=== PATIENT | female | born 1940 | race Caucasian/White ===

== ENCOUNTER 2018-09-01 12:51 | Inpatient (IN) ==
[2018-09-01 13:28] LABS: BASO# 0.01 X1000 (0.0-0.2); BASO% 0.2 % (0.0-0.8); EOS# 0.06 X1000 (0.0-0.7); HEMOGLOBIN 10.3 g/dL (12.0-16.0); MCV 83.2 FL (81-99); MPV 12.5 FL (7.4-10.4)
[2018-09-01 13:32] LABS: HEMATOCRIT 33.1 % (37.0-47.0); IMM GRAN# 0.05 X1000 (0.0-0.04); IMM GRAN% 0.9 % (0.0-0.5); LYMPH# 0.95 X1000 (1.2-3.4); LYMPH% 16.6 % (20.5-51.1); MCH 25.9 PG (27-31); MCHC 31.1 g/dL (33-37); MONO# 0.49 X1000 (0.11-0.59); MONO% 8.6 % (1.7-9.3); NEUT# 4.16 X1000 (1.4-6.5); NEUT% 72.7 % (42.2-75.2); PLT 191 X1000 (130-400); RBC 3.98 XMIL (4.2-5.4); RDW 13.8 % (11.5-14.5); WBC 5.72 X1000 (4.8-10.8)
[2018-09-01 13:43] LABS: ALBUMIN 3.6 g/dL (3.5-5.0); CALCIUM 8.8 mg/dL (8.8-10.2); CREATININE 1.1 mg/dL (0.5-0.9); POTASSIUM 3.4 mmol/L (3.5-5.1); TOTAL BILIRUBIN 0.3 mg/dL (0.20-1.00); TOTAL PROTEIN 7.2 g/dL (6.3-8.3)
[2018-09-01 13:49] LABS: INFLUENZA A NEGATIVE (NEGATIVE); INFLUENZA B NEGATIVE (NEGATIVE)
--- NOTE | 2018-09-01 15:00 | PROVIDER DOCUMENTATION ---
HPI-General Adult - General Chief Complaint: Headache Stated Complaint: VOMITING Time Seen by Provider: 09/01/18 14:40 Source: patient Allergies/Adverse Reactions: Patient Allergies Allergy/AdvReac Type Severity Reaction Status Date / Time Penicillins Allergy Unknown Verified 09/01/18 13:52 tramadol AdvReac Unknown Verified 09/01/18 13:52 Home Medications: Home Medication List Medication Instructions Recorded Confirmed Last Taken Type Levothyroxine [Synthroid] 50 microgm PO DAILY 03/03/18 09/01/18 06/20/18 History Montelukast Sodium 10 mg PO HS 03/03/18 09/01/18 06/19/18 History Melatonin/Pyridoxine HCl (B6) 1 ea PO QHS PRN #7 tab 06/23/18 09/01/18 Unknown Rx [Melatonin 1 mg Tablet] Lisinopril 10 mg PO DAILY #30 tab 07/24/18 09/01/18 Unknown Rx Donepezil HCl 5 mg PO DAILY 09/01/18 09/01/18 Unknown History - History of Present Illness -Gen Adult Nature of Presenting Problems: Patient is a 78 yowf who complains of nausea since yesterday. Emesis x 1 today. States she had a headache yesterday and the day before but denies headache today. Denies fever or diarrhea. Also reports dysuria and suprapubic pain. She denies any other symptoms and is non-toxic in appearance. Location of Pain/Injury: reports: other (suprapubic area) Pain Radiation: reports: no radiation Onset/Duration: reports: this morning Timing: reports: still present Modifying Factors: improves with: nothing Similar Symptoms Previously?: No Recently seen or treated by another doctor?: No Review of Systems - Adult - REVIEW OF SYSTEMS - ADULT Constitutional: reports: chills. denies: fever Eyes: reports: no symptoms reported Ears, Nose, Mouth & Throat: reports: no symptoms reported Cardiovascular: denies: chest pain Respiratory: denies: dyspnea on exertion, shortness of breath Gastrointestinal: reports: nausea, vomiting, other (last BM was this am and pt states it was soft and formed). denies: constipation, diarrhea Genitourinary: reports: dysuria. denies: flank pain Musculoskeletal: reports: no symptoms reported Integumentary: reports: no symptoms reported Neurological: reports: headache/migraines (denies today) Psychiatric: reports: no symptoms reported Endocrine: reports: no symptoms reported Hematologic/Lymphatic: reports: no symptoms reported Allergic/Immunologic: reports: no symptoms reported All Other Systems: Reviewed and Negative Past History - Adult - PAST MEDICAL HISTORY-ADULT Review of Records: reports: Old Records Reviewed, Nursing Assessment Review, Medications Reviewed, Social history reviewed & non-contributory. Cardiovascular: reports: HTN Neurological: reports: TIA Additional History: hypothyroidism - PRIOR SURGERIES/PROCEDURES Surgical/Procedure History: reports: hysterectomy - IMMUNIZATION STATUS Childhood Immunizations: See Nurse Assessment Flu Vaccine: See Nurse Assessment - FAMILY HISTORY Family History: reviewed, not pertinent - SOCIAL HISTORY Smoking: non-smoker Physical Exam-General - PHYSICAL EXAM-ADULT Initial Vital Signs Reviewed: Yes - CONSTITUTIONAL General Appearance: appears well, alert, no apparent distress. negative: lethargic, slow to respond - EYES Eyes: pink conjunctivae - HEAD, EARS, NOSE, MOUTH & THROAT HENMT: normocephalic/atraumatic, moist mucous membranes - NECK Neck: full range of motion, supple, normal inspection - RESPIRATORY Respiratory: chest non-tender, lungs clear, normal breath sounds, no pleuratic chest pain, no respiratory distress, no accessory muscle use - CARDIOVASCULAR Cardiovascular: normal peripheral pulses, regular rate, rhythm, no gallop, no murmur - GASTROINTESTINAL (ABDOMEN) Abdominal Exam: normal bowel sounds, soft, no organomegaly, tenderness ( suprapubic tenderness to deep palpation present). negative: distended, guarding , rigid, rebound, hernia, mass - LYMPHATIC Lymphatic: no adenopathy - MUSCULOSKELETAL Back Exam: normal inspection, no CVA tenderness Extremity: normal range of motion, non-tender, normal gait, normal inspection - SKIN Integumentary: normal color, normal turgor, warm/dry. negative: cyanosis, diaphoresis, jaundice, mottled, pallor - NEUROLOGIC Neurologic: grossly normal, no motor/sensory deficits - PSYCHIATRIC Psych/Mental Status: normal mood/affect, normal thought content, normal thought process, oriented x 3 Progress - PLAN OF CARE/RESULTS Progress/Plan/Lab Results: Vital Signs - 8 hr 09/01/18 12:54 09/01/18 14:03 Temperature 98.2 F Pulse Rate 72 74 Respiratory Rate 18 20 Blood Pressure 164/93 163/88 O2 Sat by Pulse Oximetry 98 100 Laboratory Results - last 24 hr 09/01/18 09/01/18 09/01/18 13:10 13:19 13:19 WBC 5.72 RBC 3.98 L Hgb 10.3 L Hct 33.1 L MCV 83.2 MCH 25.9 L MCHC 31.1 L RDW Std Deviation 13.8 Plt Count 191 MPV 12.5 H Immature Gran % (Auto) 0.9 H Neut % (Auto) 72.7 Lymph % (Auto) 16.6 L [place] % (Auto) 8.6 Eos % (Auto) 1.0 Baso % (Auto) 0.2 Immature Gran # (Auto) 0.05 H Neut # (Auto) 4.16 Lymph # (Auto) 0.95 L [place] # (Auto) 0.49 Eos # (Auto) 0.06 Baso # (Auto) 0.01 Sodium 136 Potassium 3.4 L Chloride 104 Carbon Dioxide 22 L Anion Gap 11 BUN 9 Creatinine 1.1 H Estimated GFR/1.73 m2 48 BUN/Creatinine Ratio 8 Glucose 124 H Calculated Osmolality 272 Calcium 8.8 Total Bilirubin 0.30 AST 17 ALT 13 Alkaline Phosphatase 124 H Total Protein 7.2 Albumin 3.6 Globulin 4.0 Albumin/Globulin Ratio 1.0 Influenza A (Rapid) NEGATIVE Influenza B (Rapid) NEGATIVE Orders Category Date Time Status CT HEAD W/O CONTRAST [CT] Stat Exams 09/01/18 14:55 Ordered CBC WITH ELECTRONIC DIFF [HEME] Stat Lab 09/01/18 13:19 Completed COMPREHENSIVE METABOLIC PANEL [CHEM] Stat Lab 09/01/18 13:19 Completed Flu [INFLUENZA SCREEN PL] Stat Lab 09/01/18 13:10 Completed UA NIMS W/REFLEX CULT PL [URINALYSIS] Stat Lab 09/01/18 14:54 Ordered Discussed plan of care with pt who is in agreement. Anemia stable as compared to previous results. Discussed case with Dr. Garnica who will assess pt in the ED. Paged Dr. Bustamante regarding admission for medical management per Dr. Garnica. Dr. Garnica saw and evaluated pt- requests orders for scheduled Cipro and Flagyl. Also spoke with Dr. Bustamante who is in ED and will see pt. Result Diagrams: 09/01/18 13:19 09/01/18 13:19 - CT/MRI 1 CT Study: Head ([facility] [address], [address], [place] [address] Department of Imaging Patient: ESTEFANY ZAMARRIPA HADPrerna Date: MR#: [id number] : 1940DM [facility] [id number] Age/ Sex: 78/FRoom/Bed: Loc: P.ED Ordering Physician: Jose Elias Bridges Family Physician: Tanna Liu MD Reason for Procedure: headache, nausea Signed EXAM: CT HEAD W/O CONTRAST HISTORY: headache, nausea TECHNIQUE: Images were obtained from the skull base to vertex without IV contrast as per standard protocol. COMPARISON: 06/29/2018 FINDINGS: There are no extra-axial collections. There is no evidence for acute infarct or hemorrhage. There is no midline shift or mass effect. There is no hydrocephalus. There is diffuse cerebral atrophy. There is patchy hypodensity throughout the deep white matter which is nonspecific in appearance but likely related to microvascular disease . Paranasal sinuses and mastoid air cells are clear. IMPRESSION: No acute intracranial abnormality is appreciated. Atrophy and microvascular disease. This exam was performed using automated exposure control, adjustment of mA or kV according to patient size, and/or use of iterative reconstruction technique. Electronically signed by Corina Waite 3:38 PM) 2 CT Study: Abdomen, Pelvis ([facility] [address] [facility], [address], [place] [address] Department of Imaging Patient: ESTEFANY ZAMARRIPA HADPrerna Date: 09/01/18MR#: [id number] : 1940DM [facility] [id number] Age/Sex: 78/FRoom/Bed: Loc: P.ED Ordering Physician: Jose Elias Bridges Family Physician: Tanna Liu MD Reason for Procedure: lower abdominal pain, vomiting Signed EXAM: CT ABD/PELVIS W/IV CONT ONLY 09/01/2018 HISTORY: lower abdominal pain, vomiting TECHNIQUE: This exam was performed using automated exposure control, adjustment of mA or kV according to patient size, and/or use of iterative reconstruction technique. COMMENT: There is some dependent atelectasis in both lung bases. There is a calcified granuloma near the distal thoracic esophagus. There are granulomata in the liver. The spleen is not enlarged. The adrenal glands are not enlarged. The pancreas is normal in appearance. There are some calcified gallstones layering dependently in the gallbladder. There is no evidence of hydronephrosis or mass in the kidneys. The aorta is not distended. There is no evidence of bowel dilatation. There is a fat-containing umbilical hernia. Pelvis: There is dilatation of the distal appendix to over 12 mm without evidence of acute inflammation. The distal appendix was distended to over 8 mm at the time the previous examination of 02/02/2012. There has been hysterectomy. The urinary bladder is unremarkable and there is no evidence of free fluid. There are anchors in the pubic bones. There is degenerative disc disease in the lumbar spine particularly at the L4-5 level there is spinal stenosis. IMPRESSION: Dilatation of the appendix which may be chronic. Cholelithiasis. Electronically signed by Imer Trejo 09/01/2018 5:37 PM 09/01/18 1737 Interpreting Physician: Imer Trejo MD Dictated Date/Time: 1731 cc: Jose Elias Bridges; Tanna Liu MD) - CONSULTS/PCP/HOSPITALIST Notification #1 *Consult/PCP/Hospitalist*: Dr. Danika Christianson Discussed: 17:45 Reason/Comments: possible appendicitis Consult Disposition: Will see in ED #2 Consult: Dr. Bustamante Time Discussed: 18:18 Reason/Comments: medical management/admission Departure - Departure Date of Disposition Decision: 09/01/18 Time of Disposition Decision: 17:40 DIAGNOSIS: Abdominal pain Qualifiers: Abdominal location: lower abdomen, unspecified Qualified Code(s): R10.30 - Lower abdominal pain, unspecified Vomiting Qualifiers: Vomiting type: unspecified Vomiting Intractability: non-intractable Nausea presence: with nausea Qualified Code(s): R11.2 - Nausea with vomiting, unspecified Disposition: ADMITTED INPATIENT 09 Certified Medical Emergency: Emergent Condition: Stable Referrals and Follow-Ups: Tanna Liu MD [Primary Care Provider] - - Critical Care Note This patient required my direct & personal management of CC.: No Attestation - Physician/ JAYESH Attestation Patient care was provided by Advanced Practice Provider:: Yes Advanced Practice Provider:: Jose Elias Bridges Advanced Practice Provider documentation review:: The Mid-level provider documentation, treatment plan and medical decision making was reviewed by the physician who agrees with all treatment and medical decision making by the MLP. The physician spent face to face time with patient:: No Advanced Practice Provider documentation review:: Supervising physician onsite and consulted in the evaluation and care of this patient. The physician did not have a face to face encounter with the patient.
[2018-09-01 15:17] LABS: BILIRUBIN URINE NEGATIVE (NEGATIVE); BLOOD URINE NEGATIVE (NEGATIVE); CLARITY CLEAR (CLEAR); COLOR YELLOW; GLUCOSE URINE NEGATIVE (NEGATIVE); KETONE URINE NEGATIVE (NEGATIVE); LEUKOCYTES URINE NEGATIVE (NEGATIVE); NITRITE URINE NEGATIVE (NEGATIVE); PROTEIN URINE NEGATIVE (NEGATIVE); SP GRAVITY URINE 1.005; UROBILINOGEN URINE NORMAL
[2018-09-01 15:24] LABS: URINE BACTERIA 1+ /HFP; URINE CAST NONE SEEN /LPF; URINE CRYSTAL NONE SEEN /HPF; URINE EPITHELIAL CELLS <10 /HPF (<10); URINE SOURCE CLEAN CATCH; URINE YEAST NONE SEEN /HPF
--- NOTE | 2018-09-01 15:40 | Diag Imaging Result Doc PS360 ---
EXAM: CT HEAD W/O CONTRAST HISTORY: headache, nausea TECHNIQUE: Images were obtained from the skull base to vertex without IV contrast as per standard protocol. COMPARISON: 06/29/2018 FINDINGS: There are no extra-axial collections. There is no evidence for acute infarct or hemorrhage. There is no midline shift or mass effect. There is no hydrocephalus. There is diffuse cerebral atrophy. There is patchy hypodensity throughout the deep white matter which is nonspecific in appearance but likely related to microvascular disease . Paranasal sinuses and mastoid air cells are clear. IMPRESSION: No acute intracranial abnormality is appreciated. Atrophy and microvascular disease. This exam was performed using automated exposure control, adjustment of mA or kV according to patient size, and/or use of iterative reconstruction technique. Electronically signed by Corina Waite 09/01/2018 3:38 PM
[2018-09-01] MEDS ORDERED: ZOFRAN ODT PO ONE (15:42)
[2018-09-01] MEDS ORDERED: NS 500 ML IV ONE (16:16)
--- NOTE | 2018-09-01 17:39 | Diag Imaging Result Doc PS360 ---
EXAM: CT ABD/PELVIS W/IV CONT ONLY 09/01/2018 HISTORY: lower abdominal pain, vomiting TECHNIQUE: This exam was performed using automated exposure control, adjustment of mA or kV according to patient size, and/or use of iterative reconstruction technique. COMMENT: There is some dependent atelectasis in both lung bases. There is a calcified granuloma near the distal thoracic esophagus. There are granulomata in the liver. The spleen is not enlarged. The adrenal glands are not enlarged. The pancreas is normal in appearance. There are some calcified gallstones layering dependently in the gallbladder. There is no evidence of hydronephrosis or mass in the kidneys. The aorta is not distended. There is no evidence of bowel dilatation. There is a fat-containing umbilical hernia. Pelvis: There is dilatation of the distal appendix to over 12 mm without evidence of acute inflammation. The distal appendix was distended to over 8 mm at the time the previous examination of 02/02/2012. There has been hysterectomy. The urinary bladder is unremarkable and there is no evidence of free fluid. There are anchors in the pubic bones. There is degenerative disc disease in the lumbar spine particularly at the L4-5 level there is spinal stenosis. IMPRESSION: Dilatation of the appendix which may be chronic. Cholelithiasis. Electronically signed by Imer Trejo 09/01/2018 5:37 PM
[2018-09-01] MEDS: CIPRO 400 MG/D5W 400 MG/200 ML IVPB IV SCH (18:43)
[2018-09-01] MEDS: NS 1,000 ML IV SCH (20:31)
[2018-09-01] MEDS: FLAGYL 500 MG/NS 500 MG/100 ML IVPB IV SCH (20:31)
[2018-09-01] MEDS: ZOFRAN IV PRN (22:19)
--- NOTE | 2018-09-02 00:06 | GENERAL SURGERY CONSULTATION ---
DATE: 09/01/2018 HISTORY OF PRESENT ILLNESS: This is a 78-year-old female with history of dementia who presents with right side abdominal pain, it has been episodic over the last couple weeks. She says it radiates down her leg. She has had some nausea today which prompted her admission to the emergency department. She has had symptoms have always been worse after eating. She denies any fevers, bowel function been normal. She has had at least 3 colonoscopies she said had been okay. Dr. Liu is her primary physician. She also has had some weight loss MEDICAL HISTORY: Hypertension. No cardiac history otherwise. SURGICAL HISTORY: She has had a lower midline incision what appears to be a hysterectomy or C- section she is unsure. SOCIAL HISTORY: No tobacco, alcohol, or drugs. Her family is here with her. She lives with her daughter. FAMILY HISTORY: Reviewed, noncontributory. REVIEW OF SYSTEMS: Ten point negative. PHYSICAL EXAM: Temperature 98.1 degrees, pulse 87, blood pressure 153/79, O2 saturation 100% . She is 147 pounds, 5 foot.General: She is alert. HEENT: There is no scleral icterus or cervical mass. Cardiovascular: Normal rate, regular rhythm. Pulmonary: No increased work of breathing. Abdomen: Soft. There is no tenderness, no peritonitis. There is lower midline incision is well healed. Integument: Warm and dry. Psychiatric: Appropriate affect. Neurologic: No gross deficits. Musculoskeletal: She does have some muscle atrophy throughout. Lymphatic: No cervical, axillary, inguinal adenopathy. LABS: White count 5, hematocrit 33, platelets 191,000, creatinine is 1.1, bilirubin 0.30, AST, ALT are normal, alkaline phosphatase mildly elevated. Urinalysis is clear. Flu is negative. I reviewed the CT scan her abdomen that shows gallstones and a dilated appendix. ASSESSMENT AND PLAN: A 78-year-old female with right side abdominal pain. It is unclear if this is related to her gallstones which most likely it is or if it is related to chronic dilation appendix which could be a chronic appendicitis or mucocele type process. We discussed both of these findings, I think given her vague symptoms and a right-sided pain with nausea I have recommended admission for antibiotics and cholecystectomy with appendectomy tomorrow. We will plan on doing this laparoscopic. We discussed risks of bleeding, infection, damage surrounding structures, bile leak, anastomotic leak. She understands and consents. Will go the operating room tomorrow. cc: MD TANA Jenkins
[2018-09-02] MEDS: OFIRMEV 1000 MG/ISOTONIC SOLN 1,000 MG/100 ML BOTTLE IV PRN ×3 (00:14→21:59)
--- NOTE | 2018-09-02 01:52 | HISTORY AND PHYSICAL ---
CHIEF COMPLAINT: Vomiting, nausea, headache, diarrhea. HISTORY OF PRESENT ILLNESS: This is a 78-year-old female with a history of hypertension, hypothyroid, diastolic heart failure, chronic kidney disease. She presents to the emergency room complaining of 24 hours of nausea, vomiting, diarrhea. She did state she had a headache yesterday but the headache did subside through the night and has not returned. She denies any chest pain, palpitations, black or bloody vomitus or stools, any constipation. PAST MEDICAL HISTORY: Is hypertension, hypothyroid, gastroesophageal reflux disease, diastolic heart failure and chronic kidney disease. PAST SURGICAL HISTORY: Hysterectomy and bladder sling. SOCIAL HISTORY: She lives with her daughter. She denies alcohol, tobacco, or illicit drug use. ALLERGIES: Penicillin and tramadol with unknown reactions. HOME MEDICATIONS: A list will be obtained by the nursing staff and once confirmed for accuracy they will be reviewed and started as is appropriate. REVIEW OF SYSTEMS: Discussed with patient with pertinent positives stated in the HPI. She denies any syncope, dizziness, chest pain, palpitations, any constipation, any black or bloody vomitus or stools, any shortness of breath, cough, fever, chills, night sweats, any hematuria. PHYSICAL EXAMINATION: GENERAL: This is a is a 78-year-old female who is lying in the stretcher in the emergency room in no distress. VITAL SIGNS: Blood pressure is 151/73 with heart rate of 70, respirations are 18, temperature is 98.1 degrees with room air saturations 98 to 100. HEENT: Pupils equal, round, react to light. EOMs are intact sclerae are anicteric. Head is normocephalic, atraumatic. Mucous membranes are moist. NECK: Supple with trachea midline. CARDIOVASCULAR: Regular rate and rhythm. S1 and S2 are appreciated. She does have peripheral pulses palpable x4 extremities. No murmurs or gallops noted. PULMONARY: Breath sounds are clear with no increased work of breathing noted. Chest rises and falls symmetric with respiration. GASTROINTESTINAL: Abdomen is soft, nontender, nondistended with bowel sounds in all 4 quadrants. GENITOURINARY: She has no CVAT or suprapubic tenderness. SKIN: Warm and dry. NEUROLOGIC: She is alert and oriented. LABS: WBC is 5.7 with hemoglobin 10.3, hematocrit 33 and platelets of 191,000. Sodium is 136, potassium 3.4, BUN 9, creatinine 1.1 with a glucose of 124. Urinalysis is essentially negative. Flu A and B are negative. CT of the abdomen and pelvis revealed dilatation of the appendix and cholelithiasis. CT of the head reveals no acute intracranial abnormality. ASSESSMENT AND PLAN: 1. Abdominal pain, nausea, vomiting. 2. Cholelithiasis. 3. Possible appendicitis. 4. Hypothyroid. 5. Gastroesophageal reflux disease. 6. Hypertension. PLAN: The patient will be admitted to [facility]. We consulted Dr. Garnica, general surgery. She was evaluated in the emergency room. She will remain NPO and will give antibiotic coverage of Flagyl and Cipro with fluids going at 50 mL an hour. Will repeat a CBC, CMP and mag in the morning as well as a PT and PTT. Will identify her home medications and continue these as appropriate with strict I and O, of course she will be placed on telemetry. Further treatments pending hospital course. Dictated by KATELYN Martin for Eric Bustamante MD This chart was documented by, KATELYN Martin and accurately reflects the services performed, treatment plan and medical decisions as attested by the providers signature Eric Bustamante MD. cc: KATELYN Martin MD
[2018-09-02] MEDS: FLAGYL 500 MG/NS 500 MG/100 ML IVPB IV SCH ×2 (02:21→08:37)
[2018-09-02] MEDS: ZOFRAN IV PRN ×3 (04:58→20:03)
[2018-09-02 05:32] LABS: HEMATOCRIT 28.2 % (37.0-47.0); HEMOGLOBIN 8.9 g/dL (12.0-16.0); MCH 26.4 PG (27-31); MCHC 31.6 g/dL (33-37); MCV 83.7 FL (81-99); MPV 12.1 FL (7.4-10.4); RBC 3.37 XMIL (4.2-5.4); RDW 13.8 % (11.5-14.5); WBC 4.79 X1000 (4.8-10.8)
[2018-09-02 05:38] LABS: INR 0.96; PROTIME 13.6 Seconds (11.0-16.0)
[2018-09-02 05:39] LABS: PTT 30.3 Seconds (22.3-41.8)
[2018-09-02 05:55] LABS: ALB/GLOB RATIO 1.1; CALCIUM 8.4 mg/dL (8.8-10.2); CREATININE 1.2 mg/dL (0.5-0.9); MAGNESIUM 1.7 mg/dL (1.5-2.7); POTASSIUM 3.8 mmol/L (3.5-5.1); TOTAL BILIRUBIN 0.31 mg/dL (0.20-1.00); TOTAL PROTEIN 5.8 g/dL (6.3-8.3)
[2018-09-02] MEDS: CIPRO 400 MG/D5W 400 MG/200 ML IVPB IV SCH (07:44)
[2018-09-02] MEDS ORDERED: SENSORCAINE 0.5%-EPI 1:200,000 ONE (08:29)
[2018-09-02] MEDS ORDERED: LR 1,000 ML ONE (08:29)
[2018-09-02] MEDS ORDERED: SODIUM CHLORIDE 0.9% ONE (08:29)
[2018-09-02] MEDS ORDERED: DIPRIVAN 1% ONE (09:06)
[2018-09-02] MEDS ORDERED: FENTANYL ONE (09:06)
[2018-09-02] MEDS ORDERED: XYLOCAINE-MPF 2% ONE (09:06)
[2018-09-02] MEDS ORDERED: SODIUM CHLORIDE 0.9% 10 ML ONE (09:07)
[2018-09-02] MEDS ORDERED: NORCURON ONE (09:07)
[2018-09-02] MEDS ORDERED: QUELICIN (DOSE) ONE (09:07)
[2018-09-02] MEDS ORDERED: DECADRON ONE (09:33)
[2018-09-02] MEDS ORDERED: ZOFRAN ONE (09:33)
[2018-09-02] MEDS ORDERED: ROBINUL ONE (09:44)
[2018-09-02] MEDS ORDERED: NEOSTIGMINE ONE (09:44)
--- NOTE | 2018-09-02 10:00 | HISTORY AND PHYSICAL ---
PATIENT PROFILE: The patient seen and examined in the ER on the . CHIEF COMPLAINT: Nausea, vomiting. HISTORY OF PRESENT ILLNESS: Patient is a 78-year-old female, who came to the ER complaining of right-sided abdominal pain. States that the pain radiated down into her right leg at times. She had some episodes of nausea and vomiting. Denies any fevers, chills or diarrhea. ALLERGIES: Penicillin and tramadol. MEDICATIONS: 1. Synthroid 50. 2. Lisinopril 10. 3. Aricept 5. PAST MEDICAL HISTORY: Hypertension, TIA's, hypothyroidism. She has had a hysterectomy. REVIEW OF SYSTEMS: As noted above. Positive nausea with 1 episode of emesis. Denies any fevers or chills. Denies cough, congestion or shortness of breath. Denies any chest pain, palpitations. Denies any diarrhea, constipation, melena. She does state that she has had some pain with urination, but it seems to be better. Denies any blood in her urine or persistent urinary symptoms. FAMILY HISTORY: Noncontributory. SOCIAL HISTORY: She lives at home and is cared for by her family. She does not smoke or drink. PHYSICAL EXAM: VITAL SIGNS: Temperature 98, pulse 72, respiratory rate 18, BP 163/88, satting 100% on room air. GENERAL: Patient is awake, alert, very pleasant to talk with. She is in no current respiratory distress. HEENT: Normocephalic. NECK: Supple. CV: Regular rate. No murmurs. CHEST: Clear and nonlabored. ABDOMEN: Soft. Tender in the right lower and right upper quadrants. Positive bowel sounds. EXTREMITIES: Moves all extremities. NEUROLOGIC: No focal changes. LABS: CBC normal. CMP with a potassium at 3.4, glucose at 124, alkaline phosphatase at 124. X-RAYS: CT showing dilatation of the appendix which may be chronic, as well as cholelithiasis. ASSESSMENT: Right-sided abdominal pain. Dr. Garnica has been consulted and has evaluated the patient in the emergency room. He feels as though she may benefit from a cholecystectomy and possibly appendectomy as well. We will admit her to the hospital, transfer her to [facility], place her on Cipro and Flagyl, keep her on nothing by mouth after midnight and follow. cc: Eric Bustamante MD
[2018-09-02] MEDS: DILAUDID ONE ×4 (11:04→11:19)
[2018-09-02] MEDS ORDERED: ZOFRAN IV PRN (11:36)
--- NOTE | 2018-09-02 11:38 | OPERATIVE NOTE ---
PROCEDURE DATE: 09/02/2018 PREOPERATIVE DIAGNOSES: 1. Symptomatic cholelithiasis. 2. Appendiceal mucocele. POSTOPERATIVE DIAGNOSES: 1. Symptomatic cholelithiasis. 2. Appendiceal mucocele. PROCEDURE PERFORMED: 1. Laparoscopic cholecystectomy, with cholangiogram. 2. Laparoscopic appendectomy. ESTIMATED BLOOD LOSS: 20 mL. ANESTHESIA: General. INDICATION: A 78-year-old female who has had nausea and right-sided abdominal discomfort intermittently over the last couple weeks, with a more severe episode. She had a CT scan that showed gallstones and a dilated appendix, with no acute inflammation. LFTs were normal, with a mild elevation in her alkaline phosphatase. OPERATIVE FINDINGS: 1. There was a chronically inflamed gallbladder, with omental and colonic adhesions. 2. Interpretation of intraoperative cholangiogram showed rapid flow of contrast through a long cystic duct into the common bile duct, with no filling defect. There was retrograde flow in the common hepatic and intrahepatic radicals. This appeared normal. 3. The appendix was dilated distally to well over a centimeter. The base was normal. There was no evidence of acute inflammation. 4. The right adnexa was normal. Uterus was absent. OPERATIVE NOTE: Risks, benefits, and alternatives discussed with the patient. She consented to the procedure. She was seen preoperatively. Surgical site was confirmed. She was taken to the operating room, placed in supine position. General anesthesia induced, without complication. All bony prominences were padded. Her abdomen was prepped after a Horne catheter was placed, and draped in usual fashion. After a time-out, we made a lower midline periumbilical incision, carried this down to the fascia. The fascia was incised and was entered in open controlled fashion. A 12 mm Sudeep trocar was placed under direct visualization. We insufflated the abdomen to 15 mmHg. We then placed 3 additional trocars, 5 mm, 1 at the epigastrium, 1 in the midclavicular line off the costal margin, and 1 more laterally. The patient was in Trendelenburg, left side down. The gallbladder was grasped and retracted cephalad. We had to, using a combination of blunt and electrocautery, take down the transverse colon and duodenal adhesions, but we did this carefully protecting these structures. We identified the infundibulum of the gallbladder during retraction. There was a small opening that spilled some bile, but no stones. This did facilitate our exposure, decompressing the gallbladder, and we widely dissected out the critical view of safety, including the lower third of the gallbladder. We confirmed our view here. There was a very small cystic artery branch that coursed through this that we divided with electrocautery. At this point, we placed a clip on the gallbladder side, performed a cholangiogram through our cystic duct, and confirmed our anatomy. There were no stones. As such, we triply clipped the cystic duct, divided it, removed the gallbladder from the gallbladder surface, placed it in an EndoCatch bag. We copiously irrigated the abdomen, noted no bile leakage, no bleeding. We removed the gallbladder. At this point, we placed the patient in Trendelenburg position. She remained in the left side down. We placed a suprapubic 5 mm trocar above the reflection of the bladder, and then a 12 mm trocar in the left lower quadrant lateral to the inferior epigastric vessels. We identified the base of the appendix, created a window at the base of the appendix. Using a 30 mm gold load stapler, divided this. A second fire of the gold load stapler was used to divide the mesoappendix, completely removing the appendix, with good closure of the stump, and no injury to the terminal ileum or cecum. We placed this in an EndoCatch bag. We irrigated the abdomen, noted hemostasis, again inspected the gallbladder fossa. At this point, the left lower quadrant incision was closed with a Emmanuel Gunter closure device and 0 Vicryl. We deflated the abdomen and brought the specimen out through the umbilical incision. The fascia was closed with interrupted 0 Vicryl sutures. Skin was closed with 4-0 Monocryl in each location. Dermabond was applied. Counts were correct. Horne was removed. She was awakened. I spoke with the family. She was transferred to recovery. cc: Yessenia Garnica MD
[2018-09-02] MEDS: NORCO-5 PO PRN ×3 (12:01→20:03)
--- NOTE | 2018-09-02 13:26 | Diag Imaging Result Doc PS360 ---
EXAM: OPERATIVE CHOLANGIOGRAM INDICATION: Gallstones TECHNIQUE: COMPARISON: None. FINDINGS: A single spot fluoroscopic image of the opacified common bile duct was provided, which were performed intraoperatively during cholecystectomy by Dr. Leonardo Garnica. The common bile duct appears grossly normal in caliber with no discrete filling defect or stricture. Contrast is seen flowing normally into the small bowel. IMPRESSION: As above. Please correlate with live fluoroscopic imaging. Electronically signed by Devon Tse 09/02/2018 1:24 PM
--- NOTE | 2018-09-02 15:41 | PROGRESS NOTE ---
DATE: 09/02/2018 SUBJECTIVE: This afternoon Ms. Min refers to be doing a whole lot better , she is slightly drowsy after the surgery, Ms. Min got admitted yesterday actually from [facility] because of nausea, abdominal pain and some headaches. Upon evaluation she was found to have symptomatic cholelithiasis and dilation of the appendix which they thought could be either chronic appendicitis or appendiceal mucocele. Patient was transferred from [facility] to [facility] for higher level of care. OBJECTIVE: Vitals: This afternoon blood pressure is 151/75, pulse 74, respiration is 18, temperature is 97.6 degrees, patient is saturating 99% on 2 L. General: Ms. Min is a 78- year-old female she is in bed, no distress. Mucosa is pink and moist. Anicteric, acyanotic. Neck: Supple. Chest: Good air entry bilateral. There is no crepitation, no rhonchi. Cardiovascular: Regular rate and rhythm. There is no murmurs, no rubs, no gallops. Abdomen: Soft. There is fresh small surgical wounds on the anterior abdominal wall consistent with recent laparoscopic surgeries . Extremities: No pedal edema. NUMEROLOGIST: Patient is awake, alert and oriented. There is no focal neurological deficit. LABORATORY DATA: Has been reviewed, WBC is 4.79, hemoglobin is 8.9, platelet count of 167,000. Chemistry is also reviewed unremarkable. CURRENT MEDICATIONS: Have also been reviewed currently on donepezil, levothyroxine and normal saline. ASSESSMENT: 1. Abdominal pain, nausea and vomiting secondary to symptomatic cholelithiasis. Patient is status post laparoscopic cholecystectomy. 2. Dilated appendix suspicious for chronic appendicitis versus appendiceal mucocele, patient is status post appendectomy. 3. Hypothyroidism, will continue with her with supplements. 4. Mild clinical volume depletion. Will continue with gentle IV hydration. 5. Chronic kidney disease stage 3A noted. So in general I think Ms. Min seems to be doing a lot better. She just immediate post laparoscopic cholecystectomy and appendectomy. She has been started on clear liquids. Hopefully tomorrow if she remains stable and is okay with surgery I think we be able to discharge her. cc: Ty Bob MD MTDD
[2018-09-02] MEDS: NS 1,000 ML IV SCH (18:23)
[2018-09-02] MEDS: PERIDEX MT SCH (20:03)
[2018-09-02] MEDS ORDERED: SINGULAIR PO SCH (21:00)
[2018-09-03] MEDS: ZOFRAN IV PRN ×3 (00:19→07:50)
[2018-09-03] MEDS: NORCO-5 PO PRN ×3 (00:19→07:50)
[2018-09-03 07:35] VITALS: BP 149/63
[2018-09-03] MEDS: PERIDEX MT SCH (08:01)
[2018-09-03] MEDS ORDERED: ARICEPT PO SCH (09:00)
[2018-09-03] MEDS ORDERED: SYNTHROID PO SCH (09:00)
--- NOTE | 2018-09-03 16:05 | GENERAL SURGERY PROGRESS NOTE ---
DATE: 09/03/2018 SUBJECTIVE: She is doing well. She is tolerating some liquids. Bowels are functioning. No fevers. PHYSICAL EXAMINATION: Pulse 63, blood pressure 149/63. General: She is alert. Abdomen: Soft. Incisions are intact. LABORATORY: No new labs this morning. ASSESSMENT AND PLAN: A 78-year-old female status post cholecystectomy with appendectomy. I think she is doing well. We can advance her diet and let her go home today. She can see me in a week for followup for review of her pathology. I have discussed postop restrictions with the patient's family. I appreciate the hospitalists' help in care of this patient. cc: Yessenia Garnica MD
--- NOTE | 2018-09-04 02:26 | DISCHARGE SUMMARY ---
ADMISSION DATE: 09/01/2018 DISCHARGE DATE: 09/03/2018 DISPOSITION: Home. FOLLOW-UP: 1. Dr. Tanna Liu. 2. Dr. Leonardo Garnica. CONSULTATION DURING THIS ADMISSION: Surgery was consulted, the patient was seen by Dr. Garnica. INVASIVE PROCEDURES DONE DURING THIS ADMISSION: Laparoscopic cholecystectomy with intraoperative cholangiogram was done by Dr. Garnica, also laparoscopic appendectomy was done at the same time. IMAGING STUDIES OF SIGNIFICANCE: A CT scan of the abdomen showed dilation of the appendix which may be chronic, and cholelithiasis. ADMISSION DIAGNOSES: 1. Abdominal pain. 2. Cholelithiasis. 3. Possible appendicitis. 4. Hypothyroid. DIAGNOSES AT THE TIME OF DISCHARGE: 1. Abdominal pain, nausea, vomiting on presentation secondary to symptomatic cholelithiasis. The patient is status post laparoscopic cholecystectomy. 2. Dilated appendix secondary to chronic appendicitis versus appendiceal mucocele. The patient is status post laparoscopic appendectomy. 3. Hypothyroidism. 4. Chronic kidney disease stage 3a. 5. Clinical volume depletion, resolved. 6. Gastroesophageal reflux disease. DISCHARGE MEDICATIONS: 1. Montelukast 10 mg p.o. at bedtime. 2. Levothyroxine 50 mcg daily. 3. Melatonin. 4. Lisinopril 10 mg p.o. daily. 5. Donepezil. 6. [place] 5 mg p.o. q.4h p.r.n. 7. Colace 100 mg b.i.d. 8. Zofran 4 mg p.o. q.4 hourly. PRESENTING COMPLAINT: Nausea, vomiting, diarrhea. HISTORY OF PRESENTING COMPLAINT: Ms. Min is a 78-year-old female with a history of hypertension, hypothyroid, CKD, who came to the emergency department at [place] initially because of abdominal pain, nausea and vomiting. The patient was evaluated thoroughly including a CT scan of the abdomen and pelvis which revealed cholelithiasis and dilated appendix. The patient was admitted under the Hospitalist Services and surgery was consulted. HOSPITAL COURSE: The patient was transferred from [place] to [facility] for higher level of care. She was evaluated by Dr. Garnica and a decision was made to intervene because of her symptomatic cholelithiasis. The patient underwent surgical intervention, she did pretty well. Postoperatively she was able to tolerate her diet. She was able to get up and walk around. Family members were with her today at the time of the encounter. She refers to be feeling a whole lot better. Abdominal pain is resolved, she is no more nauseated. The patient had already been seen today by Surgery and has been told that she could go home from surgery standpoint. From medical standpoint I think she is fairly stable to be discharged. She is going to follow up with Dr. Garnica and she will also follow up with her primary care doctor. All the discharge instructions have been discussed with her and with the family members who were with her at the time of the discharge and they all voiced understanding. All their questions and concerns were also addressed. Time spent for discharge is 35 minutes. cc: MD Tanna Menchaca MD
--- NOTE | 2018-09-04 07:33 | EKG Report ---
Test Performed on : 09/02/2018 05:18:30 AM Test Reason : 6 beat run of v-tach reported by telemetry Blood Pressure : / mmHG Vent. Rate : 063 BPM Atrial Rate : 063 BPM P-R Int : 174 ms QRS Dur : 078 ms QT Int : 436 ms P-R-T Axes : 035 047 057 degrees QTc Int : 446 ms Normal sinus rhythm. Normal ECG When compared with ECG of 24-JUL-2018 09:37, (Unconfirmed) premature supraventricular complexes. are no longer present Confirmed by Dhruv CORONADO, Jb Frausto ([id number]) on 09/04/2018 9:44:03 AM
== END 2018-09-03 10:59 | disposition home or self-care (01) | DRG 418 ==
LOC: 4N 12:51 → P.ED 12:51 → OBSVTOIN 18:48
PROVIDERS: ATTEND Internal Medicine
CPT/HCPCS: 70450; 74177; 74300; 80053; 81001; 82948; 83735; 84443; 85025; 85027; 85610; 85730; 87275; 87276; 87804; 88304; 88313; 93005; 93010; 94761; 94799; 96361; 96365; 99285; A9270; C1751; J0131; J0330; J0744; J1100; J1170; J2405; J3010; J7030; J7040; J7120; Q9966; Q9967; S0030; XXXXX